=== PATIENT | female | born 1965 | race American Indian/Alaskan Native ===

== ENCOUNTER 2016-11-14 11:19 | Emergency (ER) | payer OTHER ==
[2016-11-14 15:47] VITALS: BP 130/89
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
== END 2016-11-14 15:51 | disposition home or self-care (01) ==
LOC: ED 11:19
DX: S39.012S Strain of muscle, fascia and tendon of lower back, sequela (principal); I10 Essential (primary) hypertension; X58.XXXS Exposure to other specified factors, sequela
CPT/HCPCS: 99282

== ENCOUNTER 2021-04-05 08:43 | Outpatient (CLI) | payer OTHER ==
--- NOTE | 2021-04-05 20:10 | Treadmill Report ---
DATE OF SERVICE: 04/05/2021 TREADMILL STRESS TEST ORDERING PHYSICIAN: Dr. Kaufman, The patient's baseline EKG is sinus rhythm with nonspecific ST-Ts. Baseline heart rate was 71. Baseline blood pressure 159/87. DESCRIPTION OF PROCEDURE: The patient exercised on Max protocol for 9 minutes. Peak heart rate was 165 which is 100% max predicted. Peak blood pressure 184/80. The patient had upsloping STs, but no EKG changes or arrhythmias suggestive of ischemia. SUMMARY: 1. Negative treadmill EKG. 2. Good exercise capacity, 9 minutes Max protocol. 3. No exaggerated blood pressure response to exercise. 4. There were no EKG changes. There were upsloping STs noted in the inferolateral leads, but no ST depression or arrhythmias suggestive of ischemia. TID: [id number] RECEIPT: [id number] MARIA GUADALUPE/CHUCKIE BARRON
== END 2021-04-05 08:44 | disposition home or self-care (01) ==
LOC: CARD 08:43
PROVIDERS: ATTEND Internal Medicine Cardiovascular Disease
DX: R07.89 Other chest pain (principal); R94.31 Abnormal electrocardiogram [ECG] [EKG]
CPT/HCPCS: 93017